=== PATIENT | male | born 1990 | race Caucasian/White ===

== ENCOUNTER 2020-02-02 15:55 | Emergency (ER) | payer OTHER ==
[~2020-02-02] VITALS: Ht 185.4 cm; Wt 99.8 kg
[2020-02-02 16:47] VITALS: BP 122/83
== END 2020-02-02 18:00 | disposition home or self-care (01) ==
LOC: ER 15:55
DX: J20.9 Acute bronchitis, unspecified (principal); F17.210 Nicotine dependence, cigarettes, uncomplicated
CPT/HCPCS: 71045